=== PATIENT | female | born 1990 | race Caucasian/White ===

== ENCOUNTER 2018-12-27 09:01 | Emergency (ER) | payer SELFPAY ==
[~2018-12-27] VITALS: Ht 160 cm; Wt 45.9 kg
[2018-12-27] MEDS ORDERED: MULTCAP PO (09:07)
[2018-12-27 10:02] LABS: BASO % 0.3 % (0.0-1.0); EOS % 0.6 % (0.0-3.0); HEMATOCRIT 41.8 % (36.0-47.0); LYMPH % 14.7 % (24.0-44.0); MEAN CORPUSCULAR HEMOGLOBIN 29.7 pg (27.0-33.0); MEAN CORPUSCULAR HGB CONC 33.5 g/dl (32.0-36.5); MEAN CORPUSCULAR VOLUME 88.6 fl (80.0-96.0); MONO # 0.4 10^3/uL (0.0-0.8); MONO % 5.5 % (0.0-5.0); NEUTROPHILS # 5.1 10^3/uL (1.8-7.7); NEUTROPHILS % 78.6 % (36.0-66.0); PLATELET COUNT, AUTOMATED 168 10^3/uL (150-450); RED BLOOD COUNT 4.72 10^6/uL (4.00-5.40); WHITE BLOOD COUNT 6.5 10^3/uL (4.0-10.0)
[2018-12-27 10:03] LABS: URINE PREG TEST NEGATIVE (NEGATIVE)
[2018-12-27 10:22] LABS: ALBUMIN 4.3 GM/DL (3.2-5.2); ALT/SGPT 22 U/L (12-78); BILIRUBIN,DIRECT 0.1 MG/DL (0.0-0.2); BILIRUBIN,TOTAL 0.4 MG/DL (0.2-1.0); BLOOD UREA NITROGEN 10 MG/DL (7-18); CARBON DIOXIDE LEVEL 27 MEQ/L (21-32); CHLORIDE LEVEL 103 MEQ/L (98-107); CREATININE FOR GFR 0.78 MG/DL (0.55-1.30); GLOMERULAR FILTRATION RATE > 60.0 (>60); GLUCOSE, FASTING 95 MG/DL (70-100); LIPASE 111 U/L (73-393); POTASSIUM SERUM 3.7 MEQ/L (3.5-5.1); SODIUM LEVEL 139 MEQ/L (136-145); TOTAL PROTEIN 7.1 GM/DL (6.4-8.2)
[2018-12-27] MEDS ORDERED: KETOROLAC 30 MG/ML VIAL (J1885) IV ONE (10:30)
[2018-12-27] MEDS ORDERED: NS 1,000 ML IV ONE (11:15)
[2018-12-27 13:47] VITALS: BP 120/75
--- NOTE | 2018-12-27 15:53 | REP ---
PELVIC ULTRASOUND: Real-time sonographic evaluation of the pelvis was performed utilizing transabdominal technique. Transvaginal ultrasound was attempted but was not performed as the patient was not sexually active nor has she had a pelvic exam. The urinary bladder measures 10.1 x 6.5 x 10.5 cm. The uterus measures 8.8 x 3.5 x 4.5 cm. Endometrial thickness is 7 mm. There is no endometrial fluid collection. The ovaries appear normal in size and echotexture, right ovary measuring 4.1 x 2.4 x 4.2 cm and left ovary 4.6 x 2.7 x 3.8 cm. There is no adnexal mass or free fluid. There is no torsion, resistive index right ovary 0.75 and left ovary 0.62. IMPRESSION: Negative pelvic ultrasound. Electronically Signed by René Yepez MD 12/27/2018 08:14 P
== END 2018-12-27 13:58 | disposition home or self-care (01) ==
LOC: M ED 09:01
DX: E86.0 Dehydration (principal); R10.32 Left lower quadrant pain; R11.0 Nausea
CPT/HCPCS: 76856; 80048; 80076; 81001; 83690; 84703; 85025; 93976; 96374; 99284; J1885